=== PATIENT | female | born 1985 | race Caucasian/White ===

== ENCOUNTER 2017-04-26 11:29 | Inpatient (IN) | payer OTHER ==
[2017-04-26] MEDS: miSOPROStol 50 MCG 1/2 TAB (S0191) PO (12:07)
[2017-04-26 12:16] LABS: HEMATOCRIT 38.2 % (36.0-47.0); HEMOGLOBIN 13.2 g/dl (12.0-16.0); MEAN CORPUSCULAR HEMOGLOBIN 29.5 pg (27.0-33.0); MEAN CORPUSCULAR HGB CONC 34.6 g/dl (32.0-36.5); MEAN CORPUSCULAR VOLUME 85.3 fl (80.0-96.0); PLATELET COUNT, AUTOMATED 170 10^3/uL (150-450); RED BLOOD COUNT 4.48 10^6/uL (4.00-5.40); RED CELL DISTRIBUTION WIDTH 13.8 % (11.5-14.5); WHITE BLOOD COUNT 10.7 10^3/uL (4.0-10.0)
[2017-04-26 12:46] LABS: TOTAL PROTEIN,RANDOM URINE < 5.0 MG/DL (0.0-12.0)
[2017-04-26 12:47] LABS: ALT/SGPT 22 U/L (12-78); AST/SGOT 35 U/L (7-37); BILIRUBIN,TOTAL 0.2 MG/DL (0.2-1.0); CREATININE FOR GFR 0.81 MG/DL (0.55-1.30); GLOMERULAR FILTRATION RATE > 60.0 (>60); LDH LACTATE DEHYDROGENASE 267 U/L (84-246); URIC ACID 5.3 MG/DL (2.6-6.0)
[2017-04-26] MEDS ORDERED: TERBUTALINE SULFATE 1 MG/ML VIAL (J3105) As Ordered (16:02)
[2017-04-26] MEDS: TERBUTALINE SULFATE 1 MG/ML VIAL (J3105) SC (16:09)
[2017-04-26] MEDS ORDERED: OXYTOCIN 30 UNITS IN 0.9% NaCl 500ML IV BAG (J2590) As Ordered (16:50)
[2017-04-26] MEDS: OXYTOCIN DRIP 30 UNITS in APPROPRIATE DILUENT 1 EA IV (17:03)
[2017-04-26] MEDS: LR 1,000 ML IV ×2 (17:05→22:06)
[2017-04-26] MEDS ORDERED: FENTANYL 2MCG/ML ROPIVACAINE 0.2% IN 0.9% NACL 200ML IVBAG As Ordered (22:19)
[2017-04-26] MEDS ORDERED: LACTATED RINGER'S 1000 ML IV (23:30)
[2017-04-26] MEDS ORDERED: ePHEDrine SULFATE 25 MG/5 ML(5MG/ML) SYRINGE IV (23:30)
[2017-04-26] MEDS ORDERED: FENTANYL/ROPIVACAINE/NACL BAG 200 ML EPIDURAL (23:30)
[2017-04-26] MEDS ORDERED: diphenhydrAMINE INJ 50MG/ML VIAL (J1200) IV (23:30)
[2017-04-26] MEDS ORDERED: REFRIGERATOR IV KEYS XX (23:30)
[2017-04-26] MEDS ORDERED: EPIDURAL/PCA KEYS XX (23:30)
[2017-04-26] MEDS ORDERED: EPIDURAL COMMENT XX (23:30)
[2017-04-26] MEDS ORDERED: NALOXONE INJ 0.4 MG/1 ML VIAL (J2310) IV (23:30)
[2017-04-26] MEDS ORDERED: ONDANSETRON 4MG/2ML VIAL (J2405) IV (23:30)
[2017-04-27 02:50] LABS: CORD GAS ABE A -8.2; CORD GAS ABE V -7.7; CORD GAS HCO3 A 21.2 MEQ/L; CORD GAS HCO3 V 19.3 MEQ/L; CORD GAS O2 SAT A 42.3 %; CORD GAS PCO2 A 59.4 mmHg; CORD GAS PCO2 V 44.5 mmHg; CORD GAS PH V 7.255 UNITS; CORD GAS PO2 A 21.9 mmHg; CORD GAS PO2 V 27.9 mmHg; CORD GAS SBC A 16.7 MEQ/L; CORD GAS SBC V 17.5 MEQ/L; CORD GAS TCO2 V 20.7 MEQ/L
[2017-04-27] MEDS ORDERED: ANUSOL HC CREAM 30GM TOP (03:15)
[2017-04-27] MEDS ORDERED: RHOGAM 300 MCG (1500 IU) INJ (J2790) IM (03:15)
[2017-04-27] MEDS ORDERED: MEASLES,MUMPS,RUBELLA VACCINE INJ (MMR-II) (90707) SC (03:15)
[2017-04-27] MEDS ORDERED: DIBUCAINE 1% OINTMENT 30GM TOP (03:15)
[2017-04-27] MEDS ORDERED: MOM 30ML SUSPENSION UDC PO (03:15)
[2017-04-27] MEDS ORDERED: METHYLERGONOVINE MALEATE 0.2 MG TAB PO (03:15)
[2017-04-27] MEDS ORDERED: OXYTOCIN INJ 10 UNITS/ML VIAL (J2590) IV (03:15)
[2017-04-27] MEDS ORDERED: OXYTOCIN INJ 10 UNITS/ML VIAL (J2590) As Ordered (05:01)
[2017-04-27] MEDS: PRENATAL VITAMINS CHEWABLE TABLET PO (09:04)
[2017-04-27] MEDS: IBUPROFEN 800 MG TAB PO ×2 (09:05→16:13)
[2017-04-27] MEDS: ACETAMINOPHEN 500 MG TAB PO (14:02)
[2017-04-27] MEDS: DOCUSATE SODIUM 100 MG CAP PO (20:14)
[2017-04-28] MEDS: IBUPROFEN 800 MG TAB PO ×3 (03:10→21:16)
[2017-04-28 06:52] LABS: HEMATOCRIT 28.6 % (36.0-47.0); MEAN CORPUSCULAR HEMOGLOBIN 29.3 pg (27.0-33.0); MEAN CORPUSCULAR HGB CONC 33.2 g/dl (32.0-36.5); MEAN CORPUSCULAR VOLUME 88.3 fl (80.0-96.0); RED BLOOD COUNT 3.24 10^6/uL (4.00-5.40); RED CELL DISTRIBUTION WIDTH 14.1 % (11.5-14.5); WHITE BLOOD COUNT 11.6 10^3/uL (4.0-10.0)
[2017-04-28 07:28] LABS: HEMOGLOBIN 9.5 g/dl (12.0-16.0); PLATELET COUNT, AUTOMATED 90 10^3/uL (150-450)
[2017-04-28 07:58] LABS: IMMATURE PLATELET FRACTION % 6.1 % (0.0-9.6)
[2017-04-28] MEDS: PRENATAL VITAMINS CHEWABLE TABLET PO (08:38)
[2017-04-28] MEDS: DOCUSATE SODIUM 100 MG CAP PO (21:16)
[2017-04-29] MEDS ORDERED: IBUPROFEN 800 MG TAB As Ordered (06:13)
[2017-04-29] MEDS: IBUPROFEN 800 MG TAB PO (06:21)
[2017-04-29] MEDS: PRENATAL VITAMINS CHEWABLE TABLET PO (09:07)
== END 2017-04-29 11:20 | disposition home or self-care (01) | DRG 775 ==
LOC: M LDI 11:29 → M OBS 04-27 11:04
PROC: 3E0DXGC Introduction of Other Therapeutic Substance into Mouth and Pharynx, External Approach (ICD-10-PCS; 2017-04-26)
PROC: 10E0XZZ Delivery of Products of Conception, External Approach (ICD-10-PCS; principal; 2017-04-27)
PROC: 0W8NXZZ Division of Female Perineum, External Approach (ICD-10-PCS; 2017-04-27)
PROC: 0HQ9XZZ Repair Perineum Skin, External Approach (ICD-10-PCS; 2017-04-27)
DX: O13.4 Gestational [pregnancy-induced] hypertension without significant proteinuria, complicating childbirth (principal); O41.03X0 Oligohydramnios, third trimester, not applicable or unspecified; Z37.0 Single live birth; Z3A.40 40 weeks gestation of pregnancy; O48.0 Post-term pregnancy; O70.0 First degree perineal laceration during delivery